=== PATIENT | female | born 2000 | race Caucasian/White ===

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

== ENCOUNTER 2021-03-24 23:58 | Emergency (ER) | payer OTHER ==
[~2021-03-24] VITALS: Ht 162.5 cm; Wt 59.0 kg
[2021-03-25] MEDS ORDERED: OMEPRAZOLE MAGN20 MG PO (00:47)
== END 2021-03-25 02:13 | disposition home or self-care (01) ==
LOC: ED 23:58
DX: K21.9 Gastro-esophageal reflux disease without esophagitis (principal); Z79.899 Other long term (current) drug therapy

== ENCOUNTER → 2022-05-04 | Outpatient (CLI) | payer OTHER ==
[~2022-05-04] MED LIST changes: +OMEPRAZOLE MAGN20 MG PO
== END | disposition home or self-care (01) ==
LOC: LAB 14:03
PROVIDERS: ATTEND Nurse Practitioner Women's Health
DX: Z98.890 Other specified postprocedural states (principal)

== ENCOUNTER → 2022-05-17 | Outpatient (CLI) | payer OTHER | END | disposition home or self-care (01) | LOC: LAB 16:07 | PROVIDERS: ATTEND Nurse Practitioner Women's Health | DX: O04.80 (Induced) termination of pregnancy with unspecified complications (principal); Z98.890 Other specified postprocedural states ==

== ENCOUNTER 2024-01-15 17:54 | Emergency (ER) | payer SELFPAY ==
[~2024-01-15] VITALS: Ht 162.5 cm; Wt 72.6 kg
[2024-01-15 18:57] LABS: BASO # 0.1 10*3/uL (0.0-0.1); BASO % 0.5 % (0.0-1.0); EOS # 0.1 10*3/uL (0.0-0.4); EOS % 0.7 % (1.0-4.0); HEMATOCRIT 44.2 % (37.0-47.0); LYMPH # 2.9 10*3/uL (1.3-4.4); MEAN CELL VOLUME 88.9 fl (81.0-99.0); MEAN CORPUSCULAR HGB 29.6 pg (27.0-31.0); MEAN CORPUSCULAR HGB CONC 33.3 g/dl (33.0-37.0); MEAN PLATELET VOLUME 9.9 fl (9.6-12.3); MONO # 0.8 10*3/uL (0.1-1.0); MONO % 8.6 % (3.0-9.0); NEUT # 5.8 10*3/uL (2.3-7.9); NEUT % 59.9 % (47.0-73.0); PLATELET COUNT AUTOMATED 321 10*3/uL (130-400); RED BLOOD COUNT 4.97 10*6/uL (4.10-5.10); RED CELL DISTRI WIDTH 12.5 % (0-14.5); WHITE BLOOD COUNT 9.6 10*3/uL (4.8-10.8)
[2024-01-15 19:18] LABS: BUN 7 mg/dl (9-23); CHLORIDE 105 mmol/L (98-107); POTASSIUM 3.5 mmol/L (3.4-5.1)
[2024-01-16] MEDS ORDERED: PEPCID20 MG PO (11:06)
== END 2024-01-15 19:23 | disposition left against medical advice (07) ==
LOC: ED 17:54
PROVIDERS: Nurse Practitioner Family
DX: R07.89 Other chest pain (principal); Z53.29 Procedure and treatment not carried out because of patient's decision for other reasons

== ENCOUNTER 2024-01-16 10:41 | Emergency (ER) | payer SELFPAY ==
[~2024-01-16] VITALS: Ht 162.5 cm; Wt 72.6 kg
[2024-01-16] MEDS ORDERED: PEPCID20 MG PO (11:06)
== END 2024-01-16 11:27 | disposition home or self-care (01) ==
LOC: ED 10:41
DX: K21.9 Gastro-esophageal reflux disease without esophagitis (principal)

== ENCOUNTER 2024-09-11 06:23 | Emergency (ER) | payer SELFPAY ==
[~2024-09-11] VITALS: Ht 162.5 cm; Wt 68.0 kg
[2024-09-11] MEDS ORDERED: methylPREDNISolone sod succ 125 MG VIAL IM ONE (06:40)
[2024-09-11] MEDS ORDERED: PREDNISONE20 M1 PO (06:44)
== END 2024-09-11 06:47 | disposition home or self-care (01) ==
LOC: ED 06:23
DX: L23.7 Allergic contact dermatitis due to plants, except food (principal)

== ENCOUNTER 2024-10-01 08:14 | Emergency (ER) | payer SELFPAY ==
[~2024-10-01] VITALS: Wt 70.3 kg
[2024-10-01] MEDS ORDERED: MELOXICAM15 MG PO (10:38)
== END 2024-10-01 10:42 | disposition home or self-care (01) ==
LOC: ED 08:14
DX: S60.211A Contusion of right wrist, initial encounter (principal); W19.XXXA Unspecified fall, initial encounter; Y93.89 Activity, other specified; Y92.89 Other specified places as the place of occurrence of the external cause; Y99.8 Other external cause status

== ENCOUNTER → 2025-04-03 | Outpatient (CLI) | payer SELFPAY ==
[~2025-04-03] MED LIST changes: +MELOXICAM15 MG PO
== END | disposition home or self-care (01) ==
LOC: RAD 13:01
PROVIDERS: ATTEND Family Medicine
DX: M25.531 Pain in right wrist (principal)